=== PATIENT | male | born 1940 | race Caucasian/White ===

== ENCOUNTER 2017-10-13 21:37 | Inpatient (IN) | payer OTHER ==
[~2017-10-13] VITALS: Ht 180.3 cm; Wt 81.8 kg
[~2017-10-13 21:37] MED LIST: HYDR-3964 PO; LANTUS SQ; LOP25T PO; LOSA1TAB41 PO; MAGN64TA10 PO; MULT-1179 PO; PANT40TA4 PO; PHEN-887 PO; THI100T PO
[2017-10-13 22:30] LABS: BASOPHILS % (AUTO) 0.4 % (0-1); EOSINOPHILS # (AUTO) 0.3 X10'3 (0-0.9); EOSINOPHILS % (AUTO) 4.3 % (0-6); HEMATOCRIT 36.7 % (42.0-52.0); LYMPHOCYTES # (AUTO) 1.7 X10'3 (1.1-4.8); LYMPHOCYTES % (AUTO) 26.4 % (21-51); MEAN CORPUSCULAR HEMOGLOBIN 33.7 PG (27.0-31.0); MEAN CORPUSCULAR HGB CONC 35.5 % (33.0-36.5); MEAN PLATELET VOLUME 9.9 FL (7.4-10.4); MONOCYTES # (AUTO) 0.7 X10'3 (0-0.9); MONOCYTES % (AUTO) 10.7 % (2-12); NEUTROPHILS # (AUTO) 3.6 X10'3 (1.8-7.7); NEUTROPHILS % (AUTO) 58.2 % (42-75); PLATELET COUNT 115 X10'3 (140-440); RED BLOOD COUNT 3.86 X10'6 (4.70-6.10); RED CELL DISTRIBUTION WIDTH 14.3 % (11.5-14.5); WHITE BLOOD COUNT 6.3 X10'3 (4.5-11.0)
[2017-10-13 22:41] LABS: INR 1.1 INR; PARTIAL THROMBOPLASTIN TIME 30 SECONDS (22-32); PROTHROMBIN TIME 11.8 SECONDS (9.0-12.0)
[2017-10-13 22:53] LABS: ALANINE AMINOTRANSFERASE 77 U/L (12-78); ALBUMIN 2.9 G/DL (3.4-5.0); ALBUMIN/GLOBULIN RATIO 0.6 (1.1-1.5); ALKALINE PHOSPHATASE 155 IU/L (46-116); ANION GAP 11 (8-16); ASPARTATE AMINO TRANSFERASE 87 U/L (10-37); BLOOD UREA NITROGEN 38 MG/DL (7-18); BUN/CREATININE RATIO 17.8 (5.4-32.0); CALCIUM 8.8 MG/DL (8.5-10.1); CHLORIDE 107 MMOL/L (99-107); CREATININE 2.14 MG/DL (0.60-1.10); ETHANOL 0.111 GM/DL (0.0-0.010); MAGNESIUM 1.3 MG/DL (1.5-2.4); POTASSIUM 4.1 MMOL/L (3.5-5.1); SODIUM 141 MMOL/L (135-145); TOTAL PROTEIN 7.7 G/DL (6.4-8.2); eGFR 30 ML/MIN
[2017-10-13 22:54] LABS: GLUCOSE 185 MG/DL (70-104)
[2017-10-13 22:55] LABS: ACETAMINOPHEN < 2.0 UG/ML (10-30)
[2017-10-14] MEDS ORDERED: lactulose 20gm/30ml cup PO ONE (01:15)
[2017-10-14] MEDS: normal saline 1000ml 1,000 ML IV SCH ×3 (02:14→17:47)
[2017-10-14] MEDS ORDERED: acetaminophen 325mg tablet PO PRN (02:15)
[2017-10-14] MEDS ORDERED: magnesium hydroxide 30ml (MOM) UD suspension PO PRN (02:15)
[2017-10-14] MEDS ORDERED: mag hydrox/Alum hydrox/simeth 30ml oral suspension PO PRN (02:15)
[2017-10-14] MEDS ORDERED: ondansetron/PF 4mg/2ml inj IV PRN (02:15)
[2017-10-14] MEDS ORDERED: haloperidol 5mg tablet PO PRN (02:30)
[2017-10-14] MEDS ORDERED: thiamine inj. 100 MG in normal saline 100ml IV soln 100 ML IV ONE (02:30)
[2017-10-14] MEDS ORDERED: dextrose ORAL solution 15 GM/59 ML bottle PO PRN ×2 (02:30)
[2017-10-14] MEDS ORDERED: LORazepam 2 mg/ml vial IV PRN (02:30)
[2017-10-14] MEDS ORDERED: haloperidol lactate 5mg/ml inj IM PRN (02:30)
[2017-10-14] MEDS ORDERED: glucagon, human recombinant 1mg kit SUBCUT PRN (02:30)
[2017-10-14] MEDS ORDERED: MESSAGE TO PHARMACY PO ONE (02:30)
[2017-10-14] MEDS ORDERED: dextrose 50%-water 50ml dispensing syringe IV PRN ×2 (02:30)
[2017-10-14] MEDS ORDERED: thiamine 100mg/ml 2ml inj. IV ONE (03:15)
[2017-10-14 08:47] LABS: CLARITY,URINE Clear (Clear); COLOR,URINE Yellow (Yellow); GLUCOSE, URINE 250 mg/dl (Neg); KETONES,URINE Negative (Neg); LEUKOCYTE ESTERASE ,URINE Moderate (Neg); NITRITES, URINE Negative (Neg); OCCULT BLOOD,URINE Negative (Neg); PH,URINE 5.5 (4.8-8.0); PROTEIN,URINE Negative (Neg)
[2017-10-14 08:49] LABS: UA COLLECTION TYPE FOLEY CATH
[2017-10-14 08:54] LABS: URINE AMPHETAMINE SCREEN NEGATIVE (Neg); URINE BARBITUATE SCREEN NEGATIVE (Neg); URINE BENZODIAZEPINES SCREEN NEGATIVE (Neg); URINE CANNABINOID SCREEN NEGATIVE (Neg); URINE COCAINE SCREEN NEGATIVE (Neg); URINE METHADONE SCREEN NEGATIVE (Neg); URINE OPIATE SCREEN POSITIVE (Neg); URINE PHENCYCLIDINE SCREEN NEGATIVE (Neg)
[2017-10-14 08:56] LABS: RBC,URINE NONE SEEN /HPF (0-2)
[2017-10-14 08:57] LABS: BACTERIA,URINE NONE SEEN /HPF (Neg); SQUAMOUS EPITHELIAL CELL,UR FEW /LPF (FEW)
[2017-10-14] MEDS: thiamine 100mg tablet PO SCH (10:08)
[2017-10-14] MEDS: lactulose 20gm/30ml cup PO SCH ×3 (10:08→20:42)
[2017-10-14] MEDS: multivitamins, therapeutics tablet PO SCH (10:09)
[2017-10-14] MEDS: folic acid 1mg tablet PO SCH (10:09)
[2017-10-14] MEDS ORDERED: HYDR-3972 PO (12:35)
[2017-10-14] MEDS ORDERED: ASPI-611 PO (12:37)
[2017-10-14] MEDS ORDERED: OMEP20CA10 PO (12:37)
[2017-10-14] MEDS ORDERED: INSU100I25 SQ (12:37)
[2017-10-14] MEDS: insulin Lispro (HumaLOG) vial - multi-dose SQ SCH ×2 (13:36→19:48)
[2017-10-14] MEDS ORDERED: LIDOcaine 2% 10ml TOPICAL JELLY (Urojet) MM ONE (13:45)
[2017-10-14 17:30] VITALS: BP 163/83
[2017-10-14 19:00] VITALS: BP 164/78
[2017-10-14] MEDS: insulin glargine (Lantus) pen - multi-dose SQ SCH (20:42)
[2017-10-14 23:00] VITALS: BP 159/87
[2017-10-15] MEDS: normal saline 1000ml 1,000 ML IV SCH ×2 (02:47→17:26)
[2017-10-15 03:00] VITALS: BP 157/76
[2017-10-15 05:40] LABS: BASOPHILS # (AUTO) 0.1 X10'3 (0-0.2); BASOPHILS % (AUTO) 0.8 % (0-1); EOSINOPHILS # (AUTO) 0.3 X10'3 (0-0.9); HEMATOCRIT 35.7 % (42.0-52.0); HEMOGLOBIN 12.7 g/dl (14.0-17.9); LYMPHOCYTES # (AUTO) 1.8 X10'3 (1.1-4.8); LYMPHOCYTES % (AUTO) 24.8 % (21-51); MEAN CORPUSCULAR HEMOGLOBIN 33.6 PG (27.0-31.0); MEAN CORPUSCULAR HGB CONC 35.5 % (33.0-36.5); MEAN CORPUSCULAR VOLUME 94.7 FL (78-98); MEAN PLATELET VOLUME 11.7 FL (7.4-10.4); MONOCYTES # (AUTO) 0.9 X10'3 (0-0.9); MONOCYTES % (AUTO) 12.3 % (2-12); NEUTROPHILS # (AUTO) 4.3 X10'3 (1.8-7.7); NEUTROPHILS % (AUTO) 58.1 % (42-75); PLATELET COUNT 113 X10'3 (140-440); RED BLOOD COUNT 3.77 X10'6 (4.70-6.10); RED CELL DISTRIBUTION WIDTH 13.8 % (11.5-14.5); WHITE BLOOD COUNT 7.3 X10'3 (4.5-11.0)
[2017-10-15 05:47] LABS: ALBUMIN 2.7 G/DL (3.4-5.0); ANION GAP 9 (8-16); BLOOD UREA NITROGEN 29 MG/DL (7-18); BUN/CREATININE RATIO 16.4 (5.4-32.0); CALCIUM 9.2 MG/DL (8.5-10.1); CHLORIDE 108 MMOL/L (99-107); CREATININE 1.77 MG/DL (0.60-1.10); PHOSPHORUS 3.1 MG/DL (2.3-4.5); POTASSIUM 3.9 MMOL/L (3.5-5.1); SODIUM 141 MMOL/L (135-145); TOTAL CARBON DIOXIDE 23.9 MMOL/L (24-32); eGFR 38 ML/MIN
[2017-10-15 05:50] LABS: GLUCOSE 177 MG/DL (70-104)
[2017-10-15 06:00] VITALS: BP 148/70
[2017-10-15 06:30] LABS: MAGNESIUM 0.8 MG/DL (1.5-2.4)
[2017-10-15] MEDS ORDERED: potassium Cl 20 mEq SR tablet PO PRN ×2 (07:00)
[2017-10-15] MEDS ORDERED: potassium Cl 40MEQ/NS 500ml 500 ML IV PRN ×2 (07:00)
[2017-10-15] MEDS ORDERED: magnesium 2GM in 50ml NS 50 ML IV PRN (07:00)
[2017-10-15] MEDS: lactulose 20gm/30ml cup PO SCH ×4 (08:00→20:56)
[2017-10-15] MEDS: thiamine 100mg tablet PO SCH (08:18)
[2017-10-15] MEDS: multivitamins, therapeutics tablet PO SCH (08:18)
[2017-10-15] MEDS: folic acid 1mg tablet PO SCH (08:18)
[2017-10-15] MEDS: insulin Lispro (HumaLOG) vial - multi-dose SQ SCH ×3 (08:23→19:15)
[2017-10-15] MEDS: magnesium 4gm in 100ml NS 100 ML IV PRN (09:30)
[2017-10-15 11:00] VITALS: BP 165/76
[2017-10-15] MEDS: CefTRIAXone/D5W-Rocephin 1gm 50 ML IV SCH (13:51)
[2017-10-15 15:00] VITALS: BP 147/77
[2017-10-15 18:00] VITALS: BP 164/72
[2017-10-15] MEDS: insulin glargine (Lantus) pen - multi-dose SQ SCH (20:58)
[2017-10-15] MEDS ORDERED: morphine 4 MG/ML inj SYRINge IV ONE (23:30)
[2017-10-16] VITALS: BP 159/81
[2017-10-16] MEDS: normal saline 1000ml 1,000 ML IV SCH ×3 (03:38→16:57)
[2017-10-16 05:34] LABS: BASOPHILS % (AUTO) 0.7 % (0-1); EOSINOPHILS # (AUTO) 0.4 X10'3 (0-0.9); EOSINOPHILS % (AUTO) 5.5 % (0-6); HEMATOCRIT 35.4 % (42.0-52.0); HEMOGLOBIN 12.6 g/dl (14.0-17.9); LYMPHOCYTES # (AUTO) 1.8 X10'3 (1.1-4.8); LYMPHOCYTES % (AUTO) 28.2 % (21-51); MEAN CORPUSCULAR HEMOGLOBIN 33.4 PG (27.0-31.0); MEAN CORPUSCULAR HGB CONC 35.4 % (33.0-36.5); MEAN CORPUSCULAR VOLUME 94.4 FL (78-98); MEAN PLATELET VOLUME 10.6 FL (7.4-10.4); MONOCYTES # (AUTO) 0.6 X10'3 (0-0.9); MONOCYTES % (AUTO) 9.9 % (2-12); NEUTROPHILS # (AUTO) 3.6 X10'3 (1.8-7.7); NEUTROPHILS % (AUTO) 55.7 % (42-75); PLATELET COUNT 107 X10'3 (140-440); RED BLOOD COUNT 3.75 X10'6 (4.70-6.10); RED CELL DISTRIBUTION WIDTH 13.8 % (11.5-14.5); WHITE BLOOD COUNT 6.5 X10'3 (4.5-11.0)
[2017-10-16 05:52] LABS: ALBUMIN 2.5 G/DL (3.4-5.0); ANION GAP 9 (8-16); BLOOD UREA NITROGEN 21 MG/DL (7-18); CALCIUM 8.5 MG/DL (8.5-10.1); CHLORIDE 107 MMOL/L (99-107); CREATININE 1.61 MG/DL (0.60-1.10); GLUCOSE 180 MG/DL (70-104); MAGNESIUM 1.4 MG/DL (1.5-2.4); POTASSIUM 3.7 MMOL/L (3.5-5.1); SODIUM 138 MMOL/L (135-145); eGFR 42 ML/MIN
[2017-10-16 07:00] VITALS: BP 157/76
[2017-10-16] MEDS: thiamine 100mg tablet PO SCH (07:58)
[2017-10-16] MEDS: multivitamins, therapeutics tablet PO SCH (07:58)
[2017-10-16] MEDS: CefTRIAXone/D5W-Rocephin 1gm 50 ML IV SCH (07:58)
[2017-10-16] MEDS: folic acid 1mg tablet PO SCH (07:58)
[2017-10-16] MEDS: lactulose 20gm/30ml cup PO SCH ×3 (07:58→21:16)
[2017-10-16] MEDS: magnesium Cl slow-release 64mg tablet PO PRN ×2 (08:29→23:44)
[2017-10-16] MEDS: insulin Lispro (HumaLOG) vial - multi-dose SQ SCH ×3 (09:29→19:15)
[2017-10-16 11:00] VITALS: BP 145/72
[2017-10-16 18:00] VITALS: BP 143/77
[2017-10-16] MEDS: doxycycline hyclate 100mg tablet.DR PO SCH (19:14)
[2017-10-16] MEDS: lactobacillus rhamnosus 10,000 MMU CELLS/CAPSULE PO SCH (21:16)
[2017-10-16] MEDS: insulin glargine (Lantus) pen - multi-dose SQ SCH (21:22)
[2017-10-16 23:59] VITALS: BP 153/74
[2017-10-17] MEDS: normal saline 1000ml 1,000 ML IV SCH ×2 (03:00→14:00)
[2017-10-17 05:25] LABS: BASOPHILS # (AUTO) 0.1 X10'3 (0-0.2); BASOPHILS % (AUTO) 0.9 % (0-1); EOSINOPHILS # (AUTO) 0.4 X10'3 (0-0.9); EOSINOPHILS % (AUTO) 5.5 % (0-6); HEMATOCRIT 33.3 % (42.0-52.0); HEMOGLOBIN 11.7 g/dl (14.0-17.9); LYMPHOCYTES # (AUTO) 1.8 X10'3 (1.1-4.8); MEAN CORPUSCULAR HEMOGLOBIN 33.3 PG (27.0-31.0); MEAN CORPUSCULAR HGB CONC 35.2 % (33.0-36.5); MEAN CORPUSCULAR VOLUME 94.3 FL (78-98); MEAN PLATELET VOLUME 10.9 FL (7.4-10.4); MONOCYTES # (AUTO) 0.8 X10'3 (0-0.9); MONOCYTES % (AUTO) 11.1 % (2-12); NEUTROPHILS # (AUTO) 4.4 X10'3 (1.8-7.7); NEUTROPHILS % (AUTO) 58.5 % (42-75); PLATELET COUNT 104 X10'3 (140-440); RED BLOOD COUNT 3.53 X10'6 (4.70-6.10); RED CELL DISTRIBUTION WIDTH 14.1 % (11.5-14.5); WHITE BLOOD COUNT 7.5 X10'3 (4.5-11.0)
[2017-10-17 05:54] LABS: ALBUMIN 2.3 G/DL (3.4-5.0); ANION GAP 10 (8-16); BLOOD UREA NITROGEN 18 MG/DL (7-18); BUN/CREATININE RATIO 11.5 (5.4-32.0); CALCIUM 8.6 MG/DL (8.5-10.1); CHLORIDE 108 MMOL/L (99-107); CREATININE 1.57 MG/DL (0.60-1.10); PHOSPHORUS 2.7 MG/DL (2.3-4.5); POTASSIUM 3.9 MMOL/L (3.5-5.1); SODIUM 139 MMOL/L (135-145); TOTAL CARBON DIOXIDE 20.7 MMOL/L (24-32); eGFR 43 ML/MIN
[2017-10-17 06:04] LABS: GLUCOSE 136 MG/DL (70-104)
[2017-10-17 07:00] VITALS: BP 166/82
[2017-10-17] MEDS: multivitamins, therapeutics tablet PO SCH (07:37)
[2017-10-17] MEDS: doxycycline hyclate 100mg tablet.DR PO SCH ×2 (07:37→19:37)
[2017-10-17] MEDS: thiamine 100mg tablet PO SCH (07:37)
[2017-10-17] MEDS: lactobacillus rhamnosus 10,000 MMU CELLS/CAPSULE PO SCH ×2 (07:37→19:37)
[2017-10-17] MEDS: lactulose 20gm/30ml cup PO SCH ×3 (07:37→20:22)
[2017-10-17] MEDS: folic acid 1mg tablet PO SCH (07:37)
[2017-10-17] MEDS: insulin Lispro (HumaLOG) vial - multi-dose SQ SCH ×3 (09:24→19:41)
[2017-10-17] MEDS: magnesium 4gm in 100ml NS 100 ML IV PRN (10:08)
[2017-10-17 18:00] VITALS: BP 146/78
[2017-10-17] MEDS: insulin glargine (Lantus) pen - multi-dose SQ SCH (22:01)
[2017-10-18] VITALS: BP 148/72
[2017-10-18 05:02] LABS: BASOPHILS # (AUTO) 0.1 X10'3 (0-0.2); EOSINOPHILS # (AUTO) 0.5 X10'3 (0-0.9); EOSINOPHILS % (AUTO) 6.8 % (0-6); HEMOGLOBIN 12.2 g/dl (14.0-17.9); LYMPHOCYTES # (AUTO) 1.8 X10'3 (1.1-4.8); LYMPHOCYTES % (AUTO) 22.4 % (21-51); MEAN CORPUSCULAR HEMOGLOBIN 33.4 PG (27.0-31.0); MEAN CORPUSCULAR HGB CONC 34.9 % (33.0-36.5); MEAN CORPUSCULAR VOLUME 95.6 FL (78-98); MEAN PLATELET VOLUME 10.4 FL (7.4-10.4); MONOCYTES # (AUTO) 0.8 X10'3 (0-0.9); MONOCYTES % (AUTO) 10.4 % (2-12); NEUTROPHILS # (AUTO) 4.8 X10'3 (1.8-7.7); NEUTROPHILS % (AUTO) 59.4 % (42-75); PLATELET COUNT 123 X10'3 (140-440); RED BLOOD COUNT 3.66 X10'6 (4.70-6.10); RED CELL DISTRIBUTION WIDTH 14.1 % (11.5-14.5); WHITE BLOOD COUNT 8.1 X10'3 (4.5-11.0)
[2017-10-18 05:24] LABS: ALBUMIN 2.4 G/DL (3.4-5.0); ANION GAP 11 (8-16); BLOOD UREA NITROGEN 16 MG/DL (7-18); BUN/CREATININE RATIO 11.1 (5.4-32.0); CALCIUM 8.6 MG/DL (8.5-10.1); CHLORIDE 107 MMOL/L (99-107); CREATININE 1.44 MG/DL (0.60-1.10); MAGNESIUM 1.4 MG/DL (1.5-2.4); PHOSPHORUS 2.7 MG/DL (2.3-4.5); POTASSIUM 3.8 MMOL/L (3.5-5.1); SODIUM 140 MMOL/L (135-145); eGFR 48 ML/MIN
[2017-10-18 05:35] LABS: GLUCOSE 109 MG/DL (70-104)
[2017-10-18 06:59] VITALS: BP 146/67
[2017-10-18] MEDS: lactulose 20gm/30ml cup PO SCH (08:34)
[2017-10-18] MEDS: multivitamins, therapeutics tablet PO SCH (08:34)
[2017-10-18] MEDS: folic acid 1mg tablet PO SCH (08:34)
[2017-10-18] MEDS: thiamine 100mg tablet PO SCH (08:35)
[2017-10-18] MEDS: lactobacillus rhamnosus 10,000 MMU CELLS/CAPSULE PO SCH (08:35)
[2017-10-18] MEDS: doxycycline hyclate 100mg tablet.DR PO SCH (08:36)
[2017-10-18] MEDS ORDERED: FOLI1TAB16 PO (09:43)
[2017-10-18] MEDS ORDERED: ACAM333T8 PO (09:43)
[2017-10-18] MEDS ORDERED: LORA1TAB PO (09:43)
[2017-10-18] MEDS ORDERED: THI100T PO (09:43)
[2017-10-18] MEDS ORDERED: DOXY-200 PO (09:43)
[2017-10-18] MEDS ORDERED: LACT10SO32 PO (09:43)
[2017-10-18 11:00] VITALS: BP 97/51
== END 2017-10-18 12:20 | disposition home or self-care (01) | DRG 896 ==
LOC: ER 21:37 → ED HOLD 10-14 02:14 → PCU 3S 10-14 17:15 → SUR 3N 10-15 17:46
PROVIDERS: ADMIT Internal Medicine; ATTEND Family Medicine
PROC: 0T9B70Z Drainage of Bladder with Drainage Device, Via Natural or Artificial Opening (ICD-10-PCS; principal; 2017-10-14)
PROC: 0T7D7ZZ Dilation of Urethra, Via Natural or Artificial Opening (ICD-10-PCS; 2017-10-14)
DX: F10.239 Alcohol dependence with withdrawal, unspecified (principal); K72.00 Acute and subacute hepatic failure without coma; F10.229 Alcohol dependence with intoxication, unspecified; N17.9 Acute kidney failure, unspecified; I13.0 Hypertensive heart and chronic kidney disease with heart failure and stage 1 through stage 4 chronic kidney disease, or unspecified chronic kidney disease; N39.0 Urinary tract infection, site not specified; E11.22 Type 2 diabetes mellitus with diabetic chronic kidney disease; E11.51 Type 2 diabetes mellitus with diabetic peripheral angiopathy without gangrene; N18.3 Chronic kidney disease, stage 3 (moderate); N35.8 Other urethral stricture; N31.2 Flaccid neuropathic bladder, not elsewhere classified; K70.30 Alcoholic cirrhosis of liver without ascites; I50.9 Heart failure, unspecified; J44.9 Chronic obstructive pulmonary disease, unspecified; B95.4 Other streptococcus as the cause of diseases classified elsewhere; Z66 Do not resuscitate; Z79.899 Other long term (current) drug therapy; Z79.4 Long term (current) use of insulin; Z86.73 Personal history of transient ischemic attack (TIA), and cerebral infarction without residual deficits; Z82.49 Family history of ischemic heart disease and other diseases of the circulatory system; Z82.3 Family history of stroke
CPT/HCPCS: 36415; 70450; 71045; 80048; 80053; 80305; 80320; 80329; 81001; 82140; 82948; 83036; 83735; 84100; 84443; 85025; 85610; 85730; 87070; 87077; 87088; 87186; 93005; 96374; 99285; A4315; A4353; A6258; J0696; J1815; J2270; J3411; J3475; J7030

== ENCOUNTER 2018-04-23 09:16 | Emergency (ER) | payer OTHER ==
[~2018-04-23] VITALS: Ht 177.8 cm; Wt 77.0 kg
[~2018-04-23 09:16] MED LIST changes: +ACAM333T8 PO; +ASPI-611 PO; +DOXY-200 PO; +FOLI1TAB16 PO; -HYDR-3964 PO; +HYDR-3972 PO; +INSU100I25 SQ; +LACT10SO32 PO; -LANTUS SQ; -MAGN64TA10 PO; +OMEP20CA10 PO; -PANT40TA4 PO; -PHEN-887 PO
[2018-04-23 10:17] LABS: CLARITY,URINE TURBID (Clear); COLOR,URINE RED (Yellow)
[2018-04-23 10:20] LABS: UA COLLECTION TYPE STRAIGHT CATH
[2018-04-23 10:26] LABS: BACTERIA,URINE FEW /HPF (Neg); MUCUS STRANDS NONE SEEN /LPF (Neg); RBC,URINE TNTC /HPF (0-2); SQUAMOUS EPITHELIAL CELL,UR NONE SEEN /LPF (FEW)
[2018-04-23 10:27] LABS: WBC,URINE 30-50 /HPF (0-4)
[2018-04-23] MEDS ORDERED: NITR100C6 PO (11:00)
[2018-04-23 11:25] VITALS: BP 117/56
== END 2018-04-23 11:26 | disposition home or self-care (01) ==
LOC: ER 09:16
DX: R31.9 Hematuria, unspecified (principal); N39.0 Urinary tract infection, site not specified; N31.8 Other neuromuscular dysfunction of bladder; I11.0 Hypertensive heart disease with heart failure; I50.9 Heart failure, unspecified; J44.9 Chronic obstructive pulmonary disease, unspecified; E11.9 Type 2 diabetes mellitus without complications; Z86.73 Personal history of transient ischemic attack (TIA), and cerebral infarction without residual deficits; Z95.5 Presence of coronary angioplasty implant and graft; Z79.82 Long term (current) use of aspirin; Z79.899 Other long term (current) drug therapy; Z79.4 Long term (current) use of insulin
CPT/HCPCS: 81001; 87077; 87088; 87186; 99284

== ENCOUNTER 2018-05-05 11:43 | Inpatient (IN) | payer OTHER ==
[~2018-05-05] VITALS: Ht 170.2 cm; Wt 78.6 kg
[~2018-05-05 11:43] MED LIST changes: +NITR100C6 PO
[2018-05-05 12:12] LABS: BASOPHILS % (AUTO) 0.7 % (0-1); EOSINOPHILS # (AUTO) 0.4 X10'3 (0-0.9); EOSINOPHILS % (AUTO) 5.6 % (0-6); HEMATOCRIT 36.8 % (42.0-52.0); HEMOGLOBIN 12.7 g/dl (14.0-17.9); LYMPHOCYTES # (AUTO) 1.7 X10'3 (1.1-4.8); LYMPHOCYTES % (AUTO) 24.6 % (21-51); MEAN CORPUSCULAR HEMOGLOBIN 32.6 PG (27.0-31.0); MEAN CORPUSCULAR HGB CONC 34.6 % (33.0-36.5); MEAN PLATELET VOLUME 10.7 FL (7.4-10.4); MONOCYTES # (AUTO) 0.7 X10'3 (0-0.9); MONOCYTES % (AUTO) 9.4 % (2-12); NEUTROPHILS # (AUTO) 4.2 X10'3 (1.8-7.7); NEUTROPHILS % (AUTO) 59.7 % (42-75); PLATELET COUNT 111 X10'3 (140-440); RED BLOOD COUNT 3.91 X10'6 (4.70-6.10); RED CELL DISTRIBUTION WIDTH 13.1 % (11.5-14.5)
[2018-05-05 12:27] LABS: INR 1.1 INR; PARTIAL THROMBOPLASTIN TIME 31 SECONDS (22-32); PROTHROMBIN TIME 11.5 SECONDS (9.0-12.0)
[2018-05-05 12:32] LABS: ALANINE AMINOTRANSFERASE 28 U/L (12-78); ALBUMIN 3.2 G/DL (3.4-5.0); ALBUMIN/GLOBULIN RATIO 0.7 (1.1-1.5); ALKALINE PHOSPHATASE 214 IU/L (46-116); ANION GAP 10 (8-16); ASPARTATE AMINO TRANSFERASE 23 U/L (10-37); BILIRUBIN,TOTAL 1.1 MG/DL (0.1-1.0); BLOOD UREA NITROGEN 28 MG/DL (7-18); BUN/CREATININE RATIO 16.3 (5.4-32.0); CALCIUM 9.5 MG/DL (8.5-10.1); CHLORIDE 107 MMOL/L (99-107); CREATININE 1.72 MG/DL (0.60-1.10); POTASSIUM 4.3 MMOL/L (3.5-5.1); SODIUM 141 MMOL/L (135-145); TOTAL CARBON DIOXIDE 23.9 MMOL/L (24-32); TOTAL PROTEIN 7.9 G/DL (6.4-8.2); eGFR 39 ML/MIN
[2018-05-05 12:36] LABS: TROPONIN I 0.04 NG/ML (0.0-0.05)
[2018-05-05 12:38] LABS: GLUCOSE 177 MG/DL (70-104)
[2018-05-05 12:50] LABS: LARGE PLATELETS FEW; PLATELET ESTIMATE DECREASED
[2018-05-05 14:42] LABS: CLARITY,URINE SLIGHTLY CLOUDY (Clear); GLUCOSE, URINE >=1000 mg/dl (Neg); KETONES,URINE NEGATIVE (Neg); LEUKOCYTE ESTERASE ,URINE TRACE (Neg); NITRITES, URINE NEGATIVE (Neg); OCCULT BLOOD,URINE LARGE (Neg); PROTEIN,URINE 30 mg/dl (Neg)
[2018-05-05 14:55] LABS: COLOR,URINE AMBER (Yellow); UA COLLECTION TYPE FOLEY CATH
[2018-05-05 14:57] LABS: BACTERIA,URINE NONE SEEN /HPF (Neg); RBC,URINE 50-100 /HPF (0-2)
[2018-05-05 14:58] LABS: SQUAMOUS EPITHELIAL CELL,UR FEW /LPF (FEW)
[2018-05-05] MEDS ORDERED: lactulose 20gm/30ml cup PO ONE (15:15)
[2018-05-05] MEDS ORDERED: CefTRIAXone 2gm/D5W 50ml 50 ML IV ONE (15:15)
[2018-05-05] MEDS ORDERED: SAXA1TBM2 PO (16:09)
[2018-05-05] MEDS ORDERED: PRAV40TA3 PO (16:09)
[2018-05-05] MEDS ORDERED: potassium Cl 40MEQ/NS 500ml 500 ML IV PRN ×2 (16:10)
[2018-05-05] MEDS ORDERED: dextrose 50%-water 50ml dispensing syringe IV PRN ×2 (16:10)
[2018-05-05] MEDS ORDERED: acetaminophen 325mg tablet PO PRN ×2 (16:10)
[2018-05-05] MEDS ORDERED: magnesium 4gm in 100ml NS 100 ML IV PRN (16:10)
[2018-05-05] MEDS ORDERED: HYDROcodone/acetaminophen 5mg/325mg tablet PO PRN (16:10)
[2018-05-05] MEDS ORDERED: MESSAGE TO PHARMACY PO ONE (16:10)
[2018-05-05] MEDS ORDERED: potassium Cl 20 mEq SR tablet PO PRN ×2 (16:10)
[2018-05-05] MEDS ORDERED: mag hydrox/Alum hydrox/simeth 30ml oral suspension PO PRN (16:10)
[2018-05-05] MEDS ORDERED: dextrose ORAL solution 15 GM/59 ML bottle PO PRN (16:10)
[2018-05-05] MEDS ORDERED: glucagon, human recombinant 1mg kit SUBCUT PRN (16:10)
[2018-05-05] MEDS ORDERED: lactulose 20gm/30ml cup PO PRN (16:50)
[2018-05-05 16:56] LABS: HEMOGLOBIN A1C 9.2 % (4.5-6.2)
[2018-05-05] MEDS: lactulose 20gm/30ml cup PO SCH (21:29)
[2018-05-05 21:45] VITALS: BP 156/73
[2018-05-05] MEDS: insulin glargine (Lantus) pen - multi-dose SQ SCH (21:53)
[2018-05-05] MEDS: insulin Lispro (HumaLOG) vial - multi-dose SQ SCH (21:54)
[2018-05-05] MEDS: HYDROcodone/acetaminophen 10/325mg tab PO PRN (22:06)
[2018-05-06] VITALS: BP 142/69
[2018-05-06] MEDS ORDERED: SAXA1TBM2 PO (00:11)
[2018-05-06] MEDS: HYDROcodone/acetaminophen 10/325mg tab PO PRN ×3 (03:33→21:10)
[2018-05-06 05:56] LABS: BASOPHILS % (AUTO) 0.5 % (0-1); EOSINOPHILS # (AUTO) 0.3 X10'3 (0-0.9); EOSINOPHILS % (AUTO) 4.7 % (0-6); HEMATOCRIT 32.1 % (42.0-52.0); HEMOGLOBIN 11.3 g/dl (14.0-17.9); LYMPHOCYTES # (AUTO) 1.9 X10'3 (1.1-4.8); LYMPHOCYTES % (AUTO) 26.2 % (21-51); MEAN CORPUSCULAR HGB CONC 35.1 % (33.0-36.5); MEAN CORPUSCULAR VOLUME 94.1 FL (78-98); MEAN PLATELET VOLUME 11.3 FL (7.4-10.4); MONOCYTES # (AUTO) 0.8 X10'3 (0-0.9); NEUTROPHILS # (AUTO) 4.2 X10'3 (1.8-7.7); NEUTROPHILS % (AUTO) 57.6 % (42-75); RED BLOOD COUNT 3.42 X10'6 (4.70-6.10); RED CELL DISTRIBUTION WIDTH 13.2 % (11.5-14.5); WHITE BLOOD COUNT 7.3 X10'3 (4.5-11.0)
[2018-05-06 06:09] LABS: ALBUMIN 2.7 G/DL (3.4-5.0); ANION GAP 13 (8-16); BLOOD UREA NITROGEN 27 MG/DL (7-18); BUN/CREATININE RATIO 17.8 (5.4-32.0); CALCIUM 9.1 MG/DL (8.5-10.1); CHLORIDE 108 MMOL/L (99-107); CREATININE 1.52 MG/DL (0.60-1.10); GLUCOSE 186 MG/DL (70-104); POTASSIUM 3.8 MMOL/L (3.5-5.1); SODIUM 141 MMOL/L (135-145); TOTAL CARBON DIOXIDE 20.2 MMOL/L (24-32); eGFR 45 ML/MIN
[2018-05-06 06:35] LABS: PLATELET COUNT 94 X10'3 (140-440)
[2018-05-06 06:56] LABS: MAGNESIUM 0.9 MG/DL (1.5-2.4)
[2018-05-06 07:34] VITALS: BP 149/71
[2018-05-06] MEDS: K and/or MAG REPLACEMENT MC SCH (08:00)
[2018-05-06 08:41] LABS: LARGE PLATELETS FEW; PLATELET ESTIMATE DECREASED
[2018-05-06] MEDS: CefTRIAXone/D5W-Rocephin 1gm 50 ML IV SCH (08:58)
[2018-05-06] MEDS: lactulose 20gm/30ml cup PO SCH ×3 (08:59→21:06)
[2018-05-06] MEDS: lactobacillus rhamnosus 10,000 MMU CELLS/CAPSULE PO SCH ×2 (08:59→21:06)
[2018-05-06] MEDS: insulin Lispro (HumaLOG) vial - multi-dose SQ SCH ×4 (09:08→21:03)
[2018-05-06 13:07] VITALS: BP 127/61
[2018-05-06] MEDS: magnesium 1gm/100ml D5W IVPB 100 ML IV PRN ×2 (13:57→16:04)
[2018-05-06 19:00] VITALS: BP 148/65
[2018-05-06] MEDS: insulin glargine (Lantus) pen - multi-dose SQ SCH (21:02)
[2018-05-07] VITALS: BP 130/66
[2018-05-07] MEDS: HYDROcodone/acetaminophen 10/325mg tab PO PRN ×3 (02:57→21:21)
[2018-05-07 06:03] LABS: BASOPHILS % (AUTO) 0.3 % (0-1); EOSINOPHILS # (AUTO) 0.5 X10'3 (0-0.9); EOSINOPHILS % (AUTO) 5.1 % (0-6); HEMATOCRIT 34.4 % (42.0-52.0); HEMOGLOBIN 11.8 g/dl (14.0-17.9); LYMPHOCYTES # (AUTO) 1.8 X10'3 (1.1-4.8); LYMPHOCYTES % (AUTO) 20.4 % (21-51); MEAN CORPUSCULAR HEMOGLOBIN 32.4 PG (27.0-31.0); MEAN CORPUSCULAR HGB CONC 34.5 % (33.0-36.5); MEAN PLATELET VOLUME 11.4 FL (7.4-10.4); MONOCYTES # (AUTO) 1.1 X10'3 (0-0.9); MONOCYTES % (AUTO) 12.3 % (2-12); NEUTROPHILS # (AUTO) 5.6 X10'3 (1.8-7.7); NEUTROPHILS % (AUTO) 61.9 % (42-75); PLATELET COUNT 105 X10'3 (140-440); RED BLOOD COUNT 3.66 X10'6 (4.70-6.10); RED CELL DISTRIBUTION WIDTH 13.3 % (11.5-14.5)
[2018-05-07 06:11] LABS: ALBUMIN 2.8 G/DL (3.4-5.0); ANION GAP 11 (8-16); BLOOD UREA NITROGEN 32 MG/DL (7-18); CALCIUM 8.9 MG/DL (8.5-10.1); CHLORIDE 104 MMOL/L (99-107); GLUCOSE 206 MG/DL (70-104); MAGNESIUM 2.2 MG/DL (1.5-2.4); POTASSIUM 4.3 MMOL/L (3.5-5.1); SODIUM 136 MMOL/L (135-145); TOTAL CARBON DIOXIDE 21.3 MMOL/L (24-32); eGFR 42 ML/MIN
[2018-05-07 07:06] LABS: LARGE PLATELETS FEW; PLATELET ESTIMATE DECREASED
[2018-05-07 08:00] VITALS: BP 134/68
[2018-05-07] MEDS: K and/or MAG REPLACEMENT MC SCH (08:00)
[2018-05-07] MEDS: lactulose 20gm/30ml cup PO SCH ×3 (09:56→21:13)
[2018-05-07] MEDS: lactobacillus rhamnosus 10,000 MMU CELLS/CAPSULE PO SCH ×2 (09:56→19:18)
[2018-05-07] MEDS: CefTRIAXone/D5W-Rocephin 1gm 50 ML IV SCH (09:58)
[2018-05-07] MEDS: insulin Lispro (HumaLOG) vial - multi-dose SQ SCH ×3 (10:13→19:20)
[2018-05-07 11:00] VITALS: BP 130/65
[2018-05-07] MEDS: levoFLOXACIN-Levaquin 250mg/D5 50 ML IV SCH (16:05)
[2018-05-07 18:00] VITALS: BP 140/74
[2018-05-07] MEDS: insulin glargine (Lantus) pen - multi-dose SQ SCH (21:15)
[2018-05-08] VITALS: BP 134/64
[2018-05-08] MEDS: HYDROcodone/acetaminophen 10/325mg tab PO PRN ×2 (03:55→22:01)
[2018-05-08 05:33] LABS: BASOPHILS % (AUTO) 0.4 % (0-1); EOSINOPHILS # (AUTO) 0.7 X10'3 (0-0.9); EOSINOPHILS % (AUTO) 8.1 % (0-6); HEMATOCRIT 33.7 % (42.0-52.0); HEMOGLOBIN 11.4 g/dl (14.0-17.9); LYMPHOCYTES # (AUTO) 2.3 X10'3 (1.1-4.8); LYMPHOCYTES % (AUTO) 26.8 % (21-51); MEAN CORPUSCULAR HEMOGLOBIN 32.2 PG (27.0-31.0); MEAN CORPUSCULAR VOLUME 94.7 FL (78-98); MEAN PLATELET VOLUME 11.4 FL (7.4-10.4); MONOCYTES % (AUTO) 11.3 % (2-12); NEUTROPHILS # (AUTO) 4.6 X10'3 (1.8-7.7); NEUTROPHILS % (AUTO) 53.4 % (42-75); PLATELET COUNT 106 X10'3 (140-440); RED BLOOD COUNT 3.56 X10'6 (4.70-6.10); WHITE BLOOD COUNT 8.5 X10'3 (4.5-11.0)
[2018-05-08 06:03] LABS: ALBUMIN 2.6 G/DL (3.4-5.0); ANION GAP 13 (8-16); BLOOD UREA NITROGEN 36 MG/DL (7-18); BUN/CREATININE RATIO 21.8 (5.4-32.0); CALCIUM 8.7 MG/DL (8.5-10.1); CHLORIDE 101 MMOL/L (99-107); CREATININE 1.65 MG/DL (0.60-1.10); MAGNESIUM 1.8 MG/DL (1.5-2.4); POTASSIUM 3.8 MMOL/L (3.5-5.1); SODIUM 134 MMOL/L (135-145); eGFR 41 ML/MIN
[2018-05-08 06:05] LABS: GLUCOSE 166 MG/DL (70-104)
[2018-05-08 06:48] VITALS: BP 113/65
[2018-05-08 07:00] VITALS: BP 113/65
[2018-05-08] MEDS: K and/or MAG REPLACEMENT MC SCH (08:00)
[2018-05-08] MEDS: lactulose 20gm/30ml cup PO SCH ×3 (08:41→20:03)
[2018-05-08] MEDS: lactobacillus rhamnosus 10,000 MMU CELLS/CAPSULE PO SCH ×2 (08:41→20:02)
[2018-05-08] MEDS: levoFLOXACIN-Levaquin 250mg/D5 50 ML IV SCH (08:41)
[2018-05-08] MEDS: insulin Lispro (HumaLOG) vial - multi-dose SQ SCH ×3 (08:49→18:56)
[2018-05-08 11:00] VITALS: BP 151/69
[2018-05-08] MEDS: normal saline 1000ml 1,000 ML IV SCH ×2 (11:35→18:46)
[2018-05-08] MEDS: metoprolol tartrate 25mg tablet PO SCH (13:07)
[2018-05-08] MEDS: losartan 50mg tablet PO SCH (13:08)
[2018-05-08] MEDS: HYDROchlorothiazide 12.5mg capsule PO SCH (13:09)
[2018-05-08] MEDS: dextrose ORAL solution 15 GM/59 ML bottle PO PRN ×2 (17:15→17:31)
[2018-05-08 19:00] VITALS: BP 91/46
[2018-05-08 19:50] VITALS: BP 115/49
[2018-05-08] MEDS: insulin glargine (Lantus) pen - multi-dose SQ SCH (22:00)
[2018-05-09] VITALS: BP 101/50
[2018-05-09] MEDS: normal saline 1000ml 1,000 ML IV SCH ×2 (04:03→16:18)
[2018-05-09 05:10] LABS: BASOPHILS % (AUTO) 0.6 % (0-1); EOSINOPHILS # (AUTO) 0.6 X10'3 (0-0.9); EOSINOPHILS % (AUTO) 7.9 % (0-6); HEMATOCRIT 30.1 % (42.0-52.0); HEMOGLOBIN 10.5 g/dl (14.0-17.9); MEAN CORPUSCULAR HEMOGLOBIN 32.7 PG (27.0-31.0); MEAN CORPUSCULAR HGB CONC 34.8 % (33.0-36.5); MEAN PLATELET VOLUME 10.5 FL (7.4-10.4); MONOCYTES # (AUTO) 0.8 X10'3 (0-0.9); NEUTROPHILS # (AUTO) 3.7 X10'3 (1.8-7.7); NEUTROPHILS % (AUTO) 52.5 % (42-75); PLATELET COUNT 98 X10'3 (140-440); RED BLOOD COUNT 3.21 X10'6 (4.70-6.10); RED CELL DISTRIBUTION WIDTH 13.2 % (11.5-14.5)
[2018-05-09 06:17] LABS: ALBUMIN 2.3 G/DL (3.4-5.0); ANION GAP 9 (8-16); BLOOD UREA NITROGEN 39 MG/DL (7-18); CALCIUM 8.3 MG/DL (8.5-10.1); CHLORIDE 105 MMOL/L (99-107); CREATININE 1.56 MG/DL (0.60-1.10); GLUCOSE 150 MG/DL (70-104); MAGNESIUM 1.6 MG/DL (1.5-2.4); POTASSIUM 3.7 MMOL/L (3.5-5.1); SODIUM 136 MMOL/L (135-145); TOTAL CARBON DIOXIDE 21.8 MMOL/L (24-32); eGFR 44 ML/MIN
[2018-05-09] MEDS: levoFLOXACIN-Levaquin 250mg/D5 50 ML IV SCH (07:27)
[2018-05-09] MEDS: pantoprazole 40mg Tablet.DR PO SCH (07:28)
[2018-05-09] MEDS: lactulose 20gm/30ml cup PO SCH ×3 (07:28→21:35)
[2018-05-09] MEDS: lactobacillus rhamnosus 10,000 MMU CELLS/CAPSULE PO SCH ×2 (07:29→19:03)
[2018-05-09] MEDS: K and/or MAG REPLACEMENT MC SCH (07:33)
[2018-05-09] MEDS: metoprolol tartrate 25mg tablet PO SCH (07:35)
[2018-05-09] MEDS: HYDROchlorothiazide 12.5mg capsule PO SCH (07:35)
[2018-05-09] MEDS: losartan 50mg tablet PO SCH (07:35)
[2018-05-09 07:50] VITALS: BP 122/55
[2018-05-09] MEDS: insulin Lispro (HumaLOG) vial - multi-dose SQ SCH ×3 (08:32→19:03)
[2018-05-09 11:42] VITALS: BP 111/49
[2018-05-09 20:00] VITALS: BP 107/63
[2018-05-09] MEDS: HYDROcodone/acetaminophen 10/325mg tab PO PRN (21:35)
[2018-05-09] MEDS: insulin glargine (Lantus) pen - multi-dose SQ SCH (21:39)
[2018-05-10] VITALS: BP 143/64
[2018-05-10] MEDS: normal saline 1000ml 1,000 ML IV SCH ×3 (01:28→16:03)
[2018-05-10] MEDS: ondansetron/PF 4mg/2ml inj IV PRN ×2 (03:00→09:28)
[2018-05-10 06:52] LABS: BASOPHILS % (AUTO) 0.3 % (0-1); EOSINOPHILS # (AUTO) 0.4 X10'3 (0-0.9); EOSINOPHILS % (AUTO) 4.7 % (0-6); HEMATOCRIT 31.5 % (42.0-52.0); HEMOGLOBIN 10.9 g/dl (14.0-17.9); LYMPHOCYTES # (AUTO) 1.3 X10'3 (1.1-4.8); LYMPHOCYTES % (AUTO) 15.9 % (21-51); MEAN CORPUSCULAR HEMOGLOBIN 32.4 PG (27.0-31.0); MEAN CORPUSCULAR HGB CONC 34.6 % (33.0-36.5); MEAN CORPUSCULAR VOLUME 93.6 FL (78-98); MEAN PLATELET VOLUME 10.1 FL (7.4-10.4); MONOCYTES # (AUTO) 0.8 X10'3 (0-0.9); MONOCYTES % (AUTO) 10.7 % (2-12); NEUTROPHILS # (AUTO) 5.4 X10'3 (1.8-7.7); NEUTROPHILS % (AUTO) 68.4 % (42-75); PLATELET COUNT 114 X10'3 (140-440); RED BLOOD COUNT 3.36 X10'6 (4.70-6.10); RED CELL DISTRIBUTION WIDTH 13.1 % (11.5-14.5); WHITE BLOOD COUNT 7.9 X10'3 (4.5-11.0)
[2018-05-10 07:12] VITALS: BP 130/57
[2018-05-10 07:20] LABS: ALBUMIN 2.3 G/DL (3.4-5.0); ANION GAP 10 (8-16); BLOOD UREA NITROGEN 30 MG/DL (7-18); BUN/CREATININE RATIO 23.3 (5.4-32.0); CALCIUM 8.3 MG/DL (8.5-10.1); CHLORIDE 110 MMOL/L (99-107); CREATININE 1.29 MG/DL (0.60-1.10); GLUCOSE 148 MG/DL (70-104); MAGNESIUM 1.5 MG/DL (1.5-2.4); POTASSIUM 3.8 MMOL/L (3.5-5.1); SODIUM 141 MMOL/L (135-145); TOTAL CARBON DIOXIDE 20.7 MMOL/L (24-32); eGFR 54 ML/MIN
[2018-05-10] MEDS: K and/or MAG REPLACEMENT MC SCH (08:00)
[2018-05-10] MEDS: levoFLOXACIN-Levaquin 250mg/D5 50 ML IV SCH (09:20)
[2018-05-10] MEDS: metoprolol tartrate 25mg tablet PO SCH (09:21)
[2018-05-10] MEDS: pantoprazole 40mg Tablet.DR PO SCH (09:22)
[2018-05-10] MEDS: losartan 50mg tablet PO SCH (09:22)
[2018-05-10] MEDS: HYDROchlorothiazide 12.5mg capsule PO SCH (09:22)
[2018-05-10] MEDS: lactobacillus rhamnosus 10,000 MMU CELLS/CAPSULE PO SCH ×2 (09:22→19:43)
[2018-05-10] MEDS: lactulose 20gm/30ml cup PO SCH ×2 (09:23→19:46)
[2018-05-10] MEDS: insulin Lispro (HumaLOG) vial - multi-dose SQ SCH ×2 (09:38→19:43)
[2018-05-10 11:00] VITALS: BP 134/62
[2018-05-10 20:00] VITALS: BP 115/66
[2018-05-10] MEDS: insulin glargine (Lantus) pen - multi-dose SQ SCH (21:39)
[2018-05-11] MEDS: normal saline 1000ml 1,000 ML IV SCH (02:38)
[2018-05-11 07:00] VITALS: BP 123/53
[2018-05-11] MEDS: K and/or MAG REPLACEMENT MC SCH (08:00)
[2018-05-11] MEDS: losartan 50mg tablet PO SCH (09:31)
[2018-05-11] MEDS: lactobacillus rhamnosus 10,000 MMU CELLS/CAPSULE PO SCH (09:31)
[2018-05-11] MEDS: HYDROchlorothiazide 12.5mg capsule PO SCH (09:31)
[2018-05-11] MEDS: lactulose 20gm/30ml cup PO SCH (09:31)
[2018-05-11] MEDS: pantoprazole 40mg Tablet.DR PO SCH (09:31)
[2018-05-11] MEDS: metoprolol tartrate 25mg tablet PO SCH (09:32)
[2018-05-11] MEDS: insulin Lispro (HumaLOG) vial - multi-dose SQ SCH ×2 (09:37→13:48)
[2018-05-11 11:00] VITALS: BP 117/57
[2018-05-11] MEDS ORDERED: levoFLOXACIN 250mg tablet PO SCH (11:00)
[2018-05-11] MEDS ORDERED: LACT10SO32 PO (13:50)
[2018-05-11] MEDS ORDERED: HYDR12.5 PO (13:50)
== END 2018-05-11 17:35 | disposition home health service (06) | DRG 441 ==
LOC: ER 11:43 → ED HOLD 16:10 → SUR 3N 21:35
PROVIDERS: ADMIT Hospitalist; ATTEND Family Medicine
PROC: 0T7D8ZZ Dilation of Urethra, Via Natural or Artificial Opening Endoscopic (ICD-10-PCS; principal; 2018-05-05)
PROC: 0T9B80Z Drainage of Bladder with Drainage Device, Via Natural or Artificial Opening Endoscopic (ICD-10-PCS; 2018-05-05)
DX: K72.00 Acute and subacute hepatic failure without coma (principal); N17.0 Acute kidney failure with tubular necrosis; E43 Unspecified severe protein-calorie malnutrition; E87.1 Hypo-osmolality and hyponatremia; I13.0 Hypertensive heart and chronic kidney disease with heart failure and stage 1 through stage 4 chronic kidney disease, or unspecified chronic kidney disease; N13.8 Other obstructive and reflux uropathy; N18.4 Chronic kidney disease, stage 4 (severe); N39.0 Urinary tract infection, site not specified; F03.90 Unspecified dementia, unspecified severity, without behavioral disturbance, psychotic disturbance, mood disturbance, and anxiety; E11.21 Type 2 diabetes mellitus with diabetic nephropathy; B95.2 Enterococcus as the cause of diseases classified elsewhere; E78.5 Hyperlipidemia, unspecified; I50.9 Heart failure, unspecified; J44.9 Chronic obstructive pulmonary disease, unspecified; E11.22 Type 2 diabetes mellitus with diabetic chronic kidney disease; N35.919 Unspecified urethral stricture, male, unspecified site; N40.1 Benign prostatic hyperplasia with lower urinary tract symptoms; F10.21 Alcohol dependence, in remission; Z79.899 Other long term (current) drug therapy; Z79.82 Long term (current) use of aspirin; Z79.4 Long term (current) use of insulin; Z86.73 Personal history of transient ischemic attack (TIA), and cerebral infarction without residual deficits; Z82.49 Family history of ischemic heart disease and other diseases of the circulatory system; Z82.3 Family history of stroke; Z68.27 Body mass index [BMI] 27.0-27.9, adult
CPT/HCPCS: 36415; 70450; 71045; 74018; 80048; 80053; 81001; 82140; 82948; 83036; 83735; 84484; 85025; 85610; 85730; 87070; 87077; 87088; 87186; 93005; 96365; 99285; G0378; J0696; J1815; J1956; J2405; J3475; J7030